=== PATIENT | female | born 1950 ===

== ENCOUNTER 2024-03-15 14:50 | Emergency (ER) | payer SELFPAY ==
[2024-03-15 16:17] VITALS: BP 115/58; PULSE 57; RESP 18; TEMP 36.7; O2SAT 100
--- NOTE | 2024-03-15 18:56 | PC.NURSE ---
patient requesting to leave ED and does not wish to be seen. patient's IV removed at this time. Patient walked out without difficulty and in no distress.
== END 2024-03-15 16:30 | disposition left against medical advice (07) ==
DX: K62.5 Hemorrhage of anus and rectum (principal)
CPT/HCPCS: 99199